=== PATIENT | female | born 1985 | race African-American/Black ===

== ENCOUNTER 2017-06-18 08:32 | Emergency (ER) | payer SELFPAY ==
--- NOTE | 2017-06-18 08:41 | EDPHY ---
H & P Stated Complaint: sore throat and swelling for 2 days. HPI/ROS: CHIEF COMPLAINT: Throat pain and swelling HISTORY OF PRESENT ILLNESS: The patient is a 31 y/o female with a history of asthma complaining of throat pain and swelling onset last night. Over the last day she developed ear pain and facial (sinus) tenderness. Last night she had a twinge of soreness in her throat, but was more concerned when she developed throat swelling that made it more difficult to breathe. She is able to swallow, but with significant pain and is avoiding eating or drinking anything. She took some Advil for pain. She has been coughing this morning. She denies fever, abdominal pain, chest pain, vomiting, flank pain, dysuria, diarrhea. She did receive a flu vaccination this season. REVIEW OF SYSTEMS: A ten point review of systems was performed and is negative with the exception of the items mentioned in the HPI. Past medical history: Asthma - albuterol PRN, anxiety - Lexapro 5mg QD, recurrent sinus infections Past surgical history: Fallopian tube removed Family history: Noncontributory Social history: From [place], arrived 2 days ago. Works as a cook. No cigarette use, occasional hookah use. Occasional alcohol use. No illicit drug use. General Appearance: Alert. Vital signs reviewed. Blood pressure 136/99. Face: No mastoid tenderness, bilateral maxillary tenderness Eyes: Pupils equal and round, no conjunctival injection, no discharge. Anicteric. ENT, Mouth: TMs clear bilaterally. Bilateral tonsillar enlargement and mild erythema without exudate, uvula and posterior palate mildly edematous (not obstructing airway). No swelling of floor of mouth. Gingiva normal. Mucous membranes are moist. Neck: Anterior cervical lymphadenopathy, supple. No meningeal signs. Respiratory: Lungs are clear to auscultation; no wheezes, rales, or rhonchi. Cardiovascular: Regular rate and rhythm; no murmur, rub, or gallop. Gastrointestinal: Abdomen is soft and nontender, no masses or organomegaly. Skin: Warm and dry, no rashes on exposed skin, normal color. Back: Nontender to palpation over the thoracolumbar spine. No CVAT. Extremities: No lower extremity edema, no calf tenderness or swelling. Neurological: Alert and oriented. Moving all four extremities easily and equally. Psychiatric: Normal affect. - Personal History LMP (Females 10-55): 8-14 Days Ago Current Tetanus Diphtheria and Acellular Pertussis (TDAP): Yes - Medical/Surgical History Hx Asthma: Yes Hx Chronic Respiratory Disease: No Hx Diabetes: No Hx Cardiac Disease: No Hx Renal Disease: No Hx Cirrhosis: No Hx Alcoholism: No Hx HIV/AIDS: No Hx Splenectomy or Spleen Trauma: No Other PMH: asthma - Social History Smoking Status: Never smoked Constitutional: Initial Vital Signs Temperature (C) 36.4 C 06/18/17 08:33 Heart Rate 85 06/18/17 08:33 Respiratory Rate 16 06/18/17 08:33 Blood Pressure 136/99 H 06/18/17 08:33 O2 Sat (%) 98 06/18/17 08:33 O2 Delivery Mode Room Air Allergies/Adverse Reactions: enviromental Allergy (Uncoded 06/18/17 08:37) Home Medications: Medication Instructions Recorded Albuterol 06/18/17 Albuterol [Proventil Inhaler HFA 1 - 2 puffs IH Q4 #1 mdi 06/18/17 (*)] Escitalopram Oxalate [Lexapro] 10 mg PO DAILY #15 tab 06/18/17 Hydrocodone/APAP 5/325 [Burney 1 - 2 tab PO Q4 PRN #10 tab 06/18/17 5/325 (RX)] Lexapro 06/18/17 Medical Decision Making ED Course/Re-evaluation: This is a 31 y/o female who presents with a 1-day history of throat swelling and pain that worsened this morning. She initially had sinus symptoms consistent with prior sinus infections, but then developed pain with swallowing and perceived difficulty breathing due to swelling. On exam, airway is patent and there is no respiratory distress, no stridor or wheezing. She has swollen tonsils, uvula, and posterior palate as well as maxillary tenderness and cervical lymphadenopathy. I do not suspect tonsillar abscess, epiglottitis, or retropharyngeal abscess. Plan for IV, labs, 10mg IV Decadron, 1L IV NS, 15mg IV Toradol. 1040: Reassessed patient. She is not feeling any better and continues to have throat pain. Flu and strep swabs negative. 1 tab Percocet administered. No respiratory compromise. Patient is feeling improved. She will be discharged home with pain medication and standard pharyngitis care and follow up instructions. Burney for pain. Have also written scripts for her albuterol inhaler and Lexapro that she did not bring with her to [place]. Return precautions discussed. She is comfortable with plan for discharge. - Data Points Medications Given: Discontinued Medications Dexamethasone (Decadron Injection) 10 mg IVP EDNOW ONE Stop: 06/18/17 09:00 Last Admin: 06/18/17 09:15 Dose: 10 mg Sodium Chloride (Ns) 1,000 mls @ 0 mls/hr IV ONCE ONE; Wide Open PRN Reason: Protocol Stop: 06/18/17 08:54 Last Admin: 06/18/17 09:15 Dose: 1,000 mls Ketorolac Tromethamine (Toradol) 15 mg IVP EDNOW ONE Stop: 06/18/17 09:26 Last Admin: 06/18/17 09:30 Dose: 15 mg Oxycodone/Acetaminophen (Percocet 5/325) 1 tab PO EDNOW ONE Stop: 06/18/17 10:42 Last Admin: 06/18/17 10:56 Dose: 1 tab Departure - Departure Disposition: Home, Routine, Self-Care Clinical Impression: Pharyngitis, Sore throat Condition: Good Instructions: Pharyngitis (ED) Additional Instructions: 1. Alternate Tylenol and ibuprofen as directed below for pain, swelling, and fever. 2. Use Burney as prescribed if needed for severe pain. This medication contains Tylenol (acetaminophen), so be care to not exceed 3000mg of acetaminophen total in one day. 3. Follow up with your primary care provider for unimproved symptoms over the next few days. You've been referred to a local doctor if needed. 4. Return to the ED for difficulty breathing or swallowing or other worsening of condition. Adult Pain & Fever Control: We recommend Acetaminophen (Tylenol) and Ibuprofen (Motrin,Advil) for pain and fever control. When fever is high or pain severe, both drugs can be used at the same time, but at different intervals. Please note the time differences. Your dose is: Acetaminophen 650mg every 4 to 6 hours Ibuprofen 600mg every 6-8 hours with food Note: do not take Acetaminophen with Hydrocodone (Vicodin, Lortab) or Oxycodone (Percocet). These medications also contain Acetaminophen. No more than 3000mg of Acetaminophen should be taken in 24 hours (for an adult). Referrals: [facility],. [Clinic] - As per Instructions Pricilla Cardenas MD [Medical Doctor] - As per Instructions Prescriptions: Albuterol [Proventil Inhaler HFA (*)] 1 - 2 puffs IH Q4 #1 mdi Escitalopram Oxalate [Lexapro] 10 mg PO DAILY #15 tab Hydrocodone/APAP 5/325 [Burney 5/325 (RX)] 1 - 2 tab PO Q4 PRN #10 tab PRN Reason: pain Report Scribed for: Mariaelena Klein Report Scribed by: Nneka Grossman Date of Report: 06/18/17 Time of Report: 08:41 Physician Review and Approval Statement: 06/18/17 08:41 Portions of this note were transcribed by the medical appointment clerk. I, Dr. Mariaelena Klein, personally performed the history, physical exam, and medical decision- making; and confirmed the accuracy of the information in the transcribed note.
[2017-06-18] MEDS ORDERED: NS 1,000 ML IV ONE (08:53)
[2017-06-18] MEDS ORDERED: DEXAMETHASONE 10 MG/ML VIAL IVP ONE (08:59)
[2017-06-18] MEDS ORDERED: KETOROLAC 30 MG/1 ML SDV IVP ONE (09:25)
[2017-06-18] MEDS ORDERED: OXYCODONE/APAP 5/325 TAB PO ONE (10:41)
[2017-06-18 14:03] VITALS: BP 134/90; PULSE 75; RESP 18; TEMP 98.1; O2SAT 95
[2017-06-18 20:00] LABS: GROUP A STREP DNA (THROAT) POSITIVE (NEGATIVE)
== END 2017-06-18 14:03 | disposition home or self-care (01) ==
DX: J02.9 Acute pharyngitis, unspecified (principal); J45.909 Unspecified asthma, uncomplicated; E86.9 Volume depletion, unspecified
CPT/HCPCS: 96374; J1100; J1885